=== PATIENT | female | born 1995 | race African-American/Black ===

== ENCOUNTER 2019-03-22 18:19 | Emergency (ER) | payer OTHER ==
[2019-03-22] MEDS ORDERED: ACETAMINOPHEN 325 MG TABLET PO ONE (18:34)
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
--- NOTE | 2019-03-22 19:07 | RADIOLOGY REPORT (SQ) ---
EXAM DESCRIPTION: HAND BILATERAL 3 VIEWS COMPLETED DATE/TIME: 03/22/2019 6:51 pm REASON FOR STUDY: right thumb pain, left 5th digit pain, injury COMPARISON: None. EXAM PARAMETERS: NUMBER OF VIEWS: Six views. TECHNIQUE: AP, lateral and oblique radiographic images acquired of the right and left hand. LIMITATIONS: None. FINDINGS: MINERALIZATION: Normal. BONES: No acute fracture or dislocation. No worrisome bone lesions. JOINTS: No effusion. SOFT TISSUES: No significant soft tissue swelling. No radiopaque foreign body. OTHER: No other significant finding. IMPRESSION: NO FRACTURE. TECHNICAL DOCUMENTATION: JOB ID: [id number] [id number] 2010 [employer]- All Rights Reserved Reading location - IP/workstation name: [email or web address]
[2019-03-22 19:09] VITALS: BP 133/77
== END 2019-03-22 20:10 | disposition home or self-care (01) ==
LOC: ER 18:19
PROC: 2W3GX1Z Immobilization of Right Thumb using Splint (ICD-10-PCS; principal; 2019-03-22)
DX: S69.91XA Unspecified injury of right wrist, hand and finger(s), initial encounter (principal); M54.5 Low back pain; M79.641 Pain in right hand; M79.644 Pain in right finger(s); V87.7XXA Person injured in collision between other specified motor vehicles (traffic), initial encounter
CPT/HCPCS: 99283